=== PATIENT | male | born 1940 | race Asian ===

== ENCOUNTER 2021-02-13 11:57 | Emergency (ER) | payer OTHER ==
[~2021-02-13] VITALS: Ht 154.9 cm; Wt 54.4 kg
--- NOTE | 2021-02-13 12:06 | NUR ---
Javier gee in [facility] - 02/13/21 at 1234 by YENIFER Patient ambulated to bed 11 with steady/even gait.
[2021-02-13 12:20] VITALS: BP 137/84
--- NOTE | 2021-02-13 12:31 | NUR ---
PT AMBULATED TO BED 3.
--- NOTE | 2021-02-13 12:32 | NUR ---
Patient ambulated with slow, steady gait with daughter's assistance to restroom for urine sample.
--- NOTE | 2021-02-13 12:45 | NUR ---
80 y/o male BIB daughter with c/o N/V X1DAY. Daughter states fatigue, loss of appetite and dysphagia x 2-3 days, with fever last night and was given Tylenol. Patient denies abdominal pain, diarrhea, constipation,chills, headache, dizziness, SOB, chest pain. Last BM: yesterday normal. ABD SOFT NON TNDER. PT DENIES PAIN. LUNG SOUNDS CLEAR. DAUGTHER AT BEDSIDE PMH: HLD Meds: Denies NKA Sx: Denies
--- NOTE | 2021-02-13 12:59 | NUR ---
LAB AT BEDSIDE
--- NOTE | 2021-02-13 13:00 | NUR ---
GUNNER SWAB COLLECTED HANDED TO DASHA KWON
--- NOTE | 2021-02-13 13:05 | NUR ---
XRAY AT BEDSIDE
[2021-02-13 13:13] LABS: BASOPHILS % (AUTO) 0.6 % (0.0-2.0); EOSINOPHILS # (AUTO) 0.1 K/uL (0-0.4); HEMOGLOBIN 13.7 g/dL (12.0-18.0); LYMPHOCYTES % (AUTO) 20.4 % (20.5-51.1); MEAN CORPUSCULAR HEMOGLOBIN 26 pg (27-31); MEAN CORPUSCULAR HGB CONC 33 g/dL (33-37); MEAN CORPUSCULAR VOLUME 79.7 fL (80-94); MONOCYTES # (AUTO) 0.5 K/uL (0.8-1.0); MONOCYTES % (AUTO) 9.9 % (1.7-9.3); NEUTROPHILS # (AUTO) 3.4 K/uL (1.8-7.7); NEUTROPHILS % (AUTO) 67.1 % (42.2-75.2); PLATELET COUNT (AUTO) 190 K/uL (140-450); RED BLOOD CELL COUNT(AUTO) 5.26 MIL/uL (4.20-6.10)
[2021-02-13 13:39] LABS: APPEARANCE,URINE CLEAR (CLEAR); BILIRUBIN,URINE NEGATIVE (NEGATIVE); BLOOD, URINE 1+ (NEGATIVE); COLOR,URINE YELLOW (YELLOW); LEUKOCYTE ESTERASE ,URINE NEGATIVE (NEGATIVE); NITRITE, URINE NEGATIVE (NEGATIVE); UGLUCOSE NEGATIVE (NEGATIVE)
[2021-02-13 13:42] LABS: ALBUMIN 3.7 g/dL (3.4-5.0); ANION GAP 11.3 (8-16); ASPARTATE AMINOTRANSFERASE 21 U/L (15-37); CARBON DIOXIDE 31.1 mmol/L (21-32); CHLORIDE 96 mmol/L (98-107); CREATININE 0.8 mg/dL (0.6-1.3); GLUCOSE 106 mg/dL (74-106); LIPASE 69 U/L (73-393); POTASSIUM 3.4 mmol/L (3.5-5.1); SODIUM SERUM 135 mmol/L (136-145); TOTAL BILIRUBIN 0.3 mg/dL (0.0-1.0); UREA NITROGEN, BLOOD 13 mg/dL (7-18)
[2021-02-13 13:49] LABS: WBC,URINE 0-5 /HPF (0-5)
--- NOTE | 2021-02-13 14:13 | NUR ---
Patient being evaluated by Dr. Crowe at bedside.
[2021-02-13] MEDS ORDERED: ONDA4TAB PO (15:00)
[2021-02-13 15:13] VITALS: BP 137/84
--- NOTE | 2021-02-13 15:14 | NUR ---
Patient discharged with v/s stable. Written and verbal after care instructions given and explained. Patient alert, oriented and verbalized understanding of instructions. Ambulatory with SPOUSE to car. All questions addressed prior to discharge. ID band removed. Patient advised to follow up with PMD. Rx of ZOFRAN given. Patient educated on indication of medication including possible reaction and side effects. Opportunity to ask questions provided and answered.
[2021-02-18] MEDS ORDERED: LACT-103 PO (14:21)
[2021-02-18] MEDS ORDERED: FERR325E14 PO (14:21)
[2021-02-18] MEDS ORDERED: ASCO500T95 PO (14:21)
== END 2021-02-13 15:14 | disposition home or self-care (01) ==
LOC: MED 11:57
DX: R13.10 Dysphagia, unspecified (principal); Z20.822 Contact with and (suspected) exposure to COVID-19; R11.10 Vomiting, unspecified
CPT/HCPCS: 36415; 71045; 80053; 81001; 83690; 85025; 99284

== ENCOUNTER 2021-09-24 09:05 | Emergency (ER) | payer OTHER ==
[~2021-09-24] VITALS: Ht 152.4 cm; Wt 47.2 kg
[~2021-09-24 09:05] MED LIST: ASCO500T95 PO; FERR325E14 PO; LACT-103 PO
[2021-09-24 09:16] VITALS: BP 121/73
--- NOTE | 2021-09-24 09:45 | NUR ---
AT BEDSIDE WITH PATIENT
[2021-09-24] MEDS ORDERED: OMEP40EC24 PO (09:54)
[2021-09-24] MEDS ORDERED: IBUP-2213 PO (09:54)
[2021-09-24] MEDS ORDERED: PRED50TA2 PO (09:54)
--- NOTE | 2021-09-24 09:55 | NUR ---
81 YO PATIENT PRESENTS WITH DAUGHTER TO ED WITH CO OF SORE THROAT, PRODUCTIVE COUGH AND RUNNY NOSE X 1 DAY.DENIES FEVER; SKIN IS PINK/WARM/DRY; AAOX4 WITH EVEN AND STEADY GAIT; LUNGS CLEAR BL;VSS; PATIENT POSITIONED FOR COMFORT; HOB ELEVATED; BEDRAILS UP X2; BED DOWN. ER MD MADE AWARE OF PT STATUS. MED HX: HLD, BLINDNESS (OU) MEDS:ATORVASTATIN, FENOFIBRATE NKDA
--- NOTE | 2021-09-24 10:10 | NUR ---
Patient discharged with v/s stable. Written and verbal after care instructions given and explained to patient and daughter. Patient alert, oriented and verbalized understanding of instructions. Ambulatory with steady gait. All questions addressed prior to discharge. ID band removed. Patient advised to follow up with PMD. Rx of ibuprofen, omeprazole & prednisone given. Patient and daughter educated on indication of medication including possible reaction and side effects. Opportunity to ask questions provided and answered.
== END 2021-09-24 10:10 | disposition home or self-care (01) ==
LOC: MED 09:05
DX: J02.9 Acute pharyngitis, unspecified (principal); R05.9 Cough, unspecified; Z79.899 Other long term (current) drug therapy
CPT/HCPCS: 99283

== ENCOUNTER 2024-02-08 07:51 | Emergency (ER) | payer MEDICARE, OTHER ==
[~2024-02-08] VITALS: Ht 149.9 cm; Wt 46.8 kg
[~2024-02-08 07:51] MED LIST changes: +IBUP-2213 PO; -LACT-103 PO; +LACT-191 PO; +OMEP40EC24 PO; +PRED50TA2 PO
[2024-02-08 08:06] VITALS: BP 139/81; PULSE 98; RESP 16; TEMP 98.2; O2SAT 96
[2024-02-08] MEDS ORDERED: AZIT250T4 PO (08:55)
[2024-02-08] MEDS ORDERED: AMOX1TAB8 PO (08:55)
[2024-02-08 10:40] LABS: FLU A ANTIGEN NEGATIVE (NEGATIVE); FLU B ANTIGEN NEGATIVE (NEGATIVE)
== END 2024-02-08 09:07 | disposition home or self-care (01) ==
LOC: MED 07:51
DX: J18.9 Pneumonia, unspecified organism (principal); R03.0 Elevated blood-pressure reading, without diagnosis of hypertension; E78.5 Hyperlipidemia, unspecified; Z20.822 Contact with and (suspected) exposure to COVID-19; Z79.1 Long term (current) use of non-steroidal anti-inflammatories (NSAID); Z79.899 Other long term (current) drug therapy; Z87.891 Personal history of nicotine dependence
CPT/HCPCS: 71045; 99284